=== PATIENT | male | born 1940 | race African-American/Black ===

== ENCOUNTER 2018-06-25 09:22 | Inpatient (IN) | payer MEDICARE ==
[~2018-06-25] VITALS: Ht 358.1 cm; Wt 68.0 kg
[2018-06-25] MEDS ORDERED: COR3 PO (09:29)
[2018-06-25] MEDS ORDERED: ZOLP5TAB2 PO (09:29)
[2018-06-25] MEDS ORDERED: PROT20 PO (09:29)
[2018-06-25] MEDS ORDERED: CLOP75TA16 PO (09:29)
[2018-06-25] MEDS ORDERED: SODIUM CHLORIDE 0.9% 1,000 ML IV ONE (09:59)
[2018-06-25] MEDS ORDERED: ONDANSETRON HCL 4MG/2ML INJ IV STA (09:59)
[2018-06-25 10:12] LABS: BASOPHILS % 0.6 % (0.0-2.0); EOSINOPHILS % 0.2 % (0.0-5.0); HEMATOCRIT. 42.9 % (42.0-52.0); HEMOGLOBIN. 14.3 g/dL (14.0-18.0); LYMPHOCYTES % 10.8 % (20.0-50.0); MEAN CORPUSCULAR HEMOGLOBIN 31.3 pg (28.0-32.0); MEAN CORPUSCULAR VOLUME 94.3 fL (80.0-94.0); MEAN PLATELET VOLUME 9.5 fl (7.4-10.4); MONOCYTES % 11.3 % (2.0-8.0); NEUTROPHILS % 77.1 % (40.0-76.0); PLATELET 196 x1000/uL (130-400); RED BLOOD CELL COUNT 4.55 mill/uL (4.7-6.1); RED CELL DISTRIBUTION WIDTH 19.7 % (11.6-14.6)
[2018-06-25 10:18] LABS: CHLORIDE 106 mEq/L (98-107)
[2018-06-25 11:00] LABS: PROTHROMBIN TIME 10.1 sec (9.1-11.1)
[2018-06-25] MEDS ORDERED: MORPHINE SULFATE 4 MG/ML CPJ (NOT FOR IM USE) IV ONE (12:00)
[2018-06-25] MEDS ORDERED: HYDRALAZINE 20MG/ML VIAL IV PRN (12:15)
[2018-06-25] MEDS ORDERED: ONDANSETRON HCL 4MG/2ML INJ IV PRN (12:15)
[2018-06-25] MEDS ORDERED: MORPHINE SULFATE 4 MG/ML CPJ (NOT FOR IM USE) IV PRN (12:15)
[2018-06-25] MEDS ORDERED: IOHEXOL-300 100 ML BOTTLE ONE (12:43)
[2018-06-25] MEDS: DEXT 5%/0.45% NACL 1000ML 1,000 ML IV SCH ×2 (13:10→22:57)
[2018-06-25 17:24] LABS: CLARITY URINE CLEAR (CLEAR); COLOR URINE YELLOW (YELLOW); KETONES URINE 1+ (NEGATIVE); LEUKOCYTE ESTERASE URINE NEGATIVE (NEGATIVE); NITRITE URINE NEGATIVE (NEGATIVE); OCCULT BLOOD URINE NEGATIVE (NEGATIVE); PH URINE 7.5 (4.5-8.0); PROTEIN URINE NEGATIVE (NEGATIVE); SPECIFIC GRAVITY URINE 1.067 (1.005-1.030)
[2018-06-25] MEDS ORDERED: ENALAPRIL 2.5MG/2ML VIAL 2ML IV SCH (17:45)
[2018-06-25 20:00] VITALS: BP 137/82
[2018-06-25 20:30] VITALS: BP 140/78
[2018-06-26] VITALS: BP 140/78
[2018-06-26] MEDS ORDERED: ENALAPRIL 2.5MG/2ML VIAL 2ML IV SCH
[2018-06-26] MEDS: ENALAPRIL 1.25 MG in DEXTROSE 5% WATER 50 ML IV SCH ×5 (01:08→19:52)
[2018-06-26 04:00] VITALS: BP 151/73
[2018-06-26 06:43] LABS: HEMATOCRIT. 37.3 % (42.0-52.0); HEMOGLOBIN. 12.5 g/dL (14.0-18.0); MEAN CORPUSCULAR HEMOGLOBIN 31.2 pg (28.0-32.0); MEAN PLATELET VOLUME 9.4 fl (7.4-10.4); PLATELET 168 x1000/uL (130-400); RED BLOOD CELL COUNT 4.01 mill/uL (4.7-6.1); RED CELL DISTRIBUTION WIDTH 19.6 % (11.6-14.6)
[2018-06-26 06:51] LABS: CHLORIDE 108 mEq/L (98-107)
[2018-06-26 08:00] VITALS: BP 150/73
[2018-06-26] MEDS: DEXT 5%/0.45% NACL 1000ML 1,000 ML IV SCH ×2 (08:24→17:42)
[2018-06-26 12:00] VITALS: BP 170/69
[2018-06-26 12:19] LABS: PLATELET ESTIMATE NORMAL
[2018-06-26 16:00] VITALS: BP 185/79
[2018-06-26 20:00] VITALS: BP 199/86
[2018-06-27] VITALS: BP 168/73
[2018-06-27] MEDS: ENALAPRIL 1.25 MG in DEXTROSE 5% WATER 50 ML IV SCH (02:42)
[2018-06-27 04:00] VITALS: BP 187/86
[2018-06-27] MEDS: DEXT 5%/0.45% NACL 1000ML 1,000 ML IV SCH ×2 (04:04→15:48)
[2018-06-27] MEDS: HYDRALAZINE 10 MG in SODIUM CHLORIDE 0.9% 49.5 ML IV PRN ×2 (04:37→20:36)
[2018-06-27 07:33] LABS: HEMATOCRIT. 39.4 % (42.0-52.0); HEMOGLOBIN. 13.1 g/dL (14.0-18.0); MEAN CORPUSCULAR HEMOGLOBIN 31.1 pg (28.0-32.0); MEAN CORPUSCULAR VOLUME 93.8 fL (80.0-94.0); MEAN PLATELET VOLUME 10.1 fl (7.4-10.4); PLATELET 175 x1000/uL (130-400); RED BLOOD CELL COUNT 4.21 mill/uL (4.7-6.1); RED CELL DISTRIBUTION WIDTH 19.1 % (11.6-14.6)
[2018-06-27 07:58] LABS: CHLORIDE 106 mEq/L (98-107)
[2018-06-27 08:00] VITALS: BP 158/74
[2018-06-27 11:47] VITALS: BP 150/65
[2018-06-27] MEDS: LOSARTAN POTASSIUM 50 MG TABLET PO SCH ×2 (11:59→23:52)
[2018-06-27] MEDS ORDERED: POTASSIUM CHLORIDE 20MEQ TABLET SR PO NR (12:00)
[2018-06-27 16:00] VITALS: BP 173/83
[2018-06-27 20:00] VITALS: BP 179/111
[2018-06-28] VITALS: BP 157/78
[2018-06-28 04:00] VITALS: BP 179/98
[2018-06-28] MEDS: HYDRALAZINE 10 MG in SODIUM CHLORIDE 0.9% 49.5 ML IV PRN (04:37)
[2018-06-28 08:00] VITALS: BP 175/82
[2018-06-28] MEDS: LOSARTAN POTASSIUM 50 MG TABLET PO SCH (10:53)
[2018-06-28 12:00] VITALS: BP 175/82
[2018-06-28] MEDS ORDERED: CLONIDINE 0.1MG TABLET PO NR (12:15)
[2018-06-28 13:48] LABS: NUCLEATED RED BLOOD CELLS 1 /100 WBC
[2018-06-28 13:49] LABS: PLATELET ESTIMATE NORMAL
[2018-06-28 15:30] VITALS: BP 175/82
[2018-06-28 15:33] VITALS: BP 164/88
[2018-06-28] MEDS ORDERED: AMLODIPINE 5MG TABLET PO SCH (21:00)
== END 2018-06-28 16:00 | disposition home or self-care (01) | DRG 390 ==
LOC: ER 09:22 → 6EST 12:14 → EDBEDREQ 12:17 → ENRESERV 17:32 → 6EST 20:00
PROVIDERS: ADMIT Internal Medicine; ATTEND Internal Medicine
PROC: 0D9670Z Drainage of Stomach with Drainage Device, Via Natural or Artificial Opening (ICD-10-PCS; principal; 2018-06-26)
DX: K56.609 Unspecified intestinal obstruction, unspecified as to partial versus complete obstruction (principal); I25.10 Atherosclerotic heart disease of native coronary artery without angina pectoris; K56.7 Ileus, unspecified; I10 Essential (primary) hypertension; Z93.3 Colostomy status; Z85.038 Personal history of other malignant neoplasm of large intestine; Z95.5 Presence of coronary angioplasty implant and graft; Z90.49 Acquired absence of other specified parts of digestive tract
CPT/HCPCS: 36415; 71045; 74018; 74177; 80048; 83036; 93970; 96374; 96375; 99285; J0360; J2270; J2405; J3490; J7030; J7060; Q9967